=== PATIENT | female | born 1980 | race American Indian/Alaskan Native ===

== ENCOUNTER 2018-06-18 00:16 | Emergency (ER) | payer MEDICAID, OTHER ==
[~2018-06-18] VITALS: Ht 172.7 cm; Wt 104.3 kg
[2018-06-18 00:26] VITALS: BP 130/84
== END 2018-06-18 04:45 | disposition left against medical advice (07) ==
LOC: EDBD 00:16 → ER 00:20
DX: F41.9 Anxiety disorder, unspecified (principal); Z53.21 Procedure and treatment not carried out due to patient leaving prior to being seen by health care provider
CPT/HCPCS: 93005